=== PATIENT | male | born 1950 | race Caucasian/White ===

== ENCOUNTER 2018-03-02 12:15 | Emergency (ER) | payer OTHER, SELFPAY ==
[2018-03-02 12:23] VITALS: BP 127/92; PULSE 78; RESP 20; TEMP 36.8; O2SAT 96
--- NOTE | 2018-03-02 13:57 | DI.RAD_ITS ---
SYMPTOMS/DIAGNOSIS: TRAUMA, 5TH METATARSAL PAIN RIGHT FOOT: No fracture or dislocation is seen. There are no significant degenerative changes. IMPRESSION: Negative right foot.
--- NOTE | 2018-03-02 13:58 | W.ED.GENAD ---
Discharge Plan Disposition Patient Disposition: HOME Condition: Fair Discharge Details Chief Complaint: Orthopedic Clinical Impression: Foot sprain Primary Care Provider: ALYSHA ROYAL ED Provider: Janice Brandt Home Meds and New Rx's Prescriptions: Continue multivitamin Tablet 1 tab PO DAILY RF: 0 gabapentin 600 mg Tablet 600 mg PO TID RF: 0 simvastatin 10 mg Tablet PO HS RF: 0 allopurinol 100 mg Tablet 100 mg PO HS RF: 0 primidone 250 mg Tablet 250 mg PO TID RF: 0 losartan 25 mg Tablet 25 mg PO DAILY RF: 0 aspirin 81 mg Tablet,Chewable 81 mg PO DAILY RF: 0 magnesium 250 mg Tablet 500 mg PO DAILY RF: 0 propranolol 120 mg Capsule,Extended Release 24 Hr 120 mg PO DAILY RF: 0 cholecalciferol (vitamin D3) [Vitamin D3] 400 unit Tablet 400 unit PO DIRECTED RF: 0 Discharge Instructions Instructions: Foot Sprain (ED) Additional Instructions: Encourage rest, ice, elevation. Ibuprofen as needed for discomfort. Continue use of the postoperative shoe to help with your discomfort and help immobilize the foot. Please follow-up with primary care in 1-2 weeks if symptoms have not improved. If you develop new or worsening symptoms please seek care urgently once again. Referrals: ALYSHA ROYAL [Primary Care Provider] - Discharge Data Discharge Date/Time-TO BE ENTERED AT DEPARTURE: 03/02/18 15:23 Medical Decision Making Patient is a 67-year-old male, accompanied by his , with chief complaint of right foot pain. He reports that approximately 4 days ago, he was walking across a parking lot when he suddenly felt a crack and indicates the lateral aspect of his foot is area of discomfort. Patient reports that he has history of peripheral neuropathy and peripheral vascular disease. Is followed by his primary care. He has seen shop repairer. Denies any previous fractures to this foot. States that since the time of the injury he has been having pain along the lateral aspect of the foot, particular with ambulation. Rates the pain currently at a 7 out of 10. Exam fitted with an antalgic gait. Reports he is able to walk on his heel which does help some of the discomfort. Reports that he has no sensation in the toes. Denies any fevers or chills. No deformity is noted on exam. Patient has 3-second capillary refill. Sounds to be chronic based on patient's history. He endorses pain primarily over the proximal fifth metatarsal. Good range of motion of the ankle no pain with palpation of the ankle. No pain in the proximal fibular head or neck. X-ray reviewed by radiologist no acute bony abnormality noted. Discussed findings with the patient. Encouraged rest, ice, elevation. Advised use of anti-inflammatories to help with discomfort. Advise follow-up with primary care in the next 1-2 weeks for reevaluation if pain is not improved. Advised likely sprain of the foot, no notable ligamentous injury appreciated on exam. Advised to seek care urgently once again if he develops new or worsening symptoms. Also advised that with his chronic foot issues, including peripheral neuropathy and peripheral vascular disease, he see a shop repairer on a regular basis. Will place patient in a postoperative shoe to help with ambulation help with discomfort. We discussed new/worsening symptoms once he care urgently once again. All his questions and concerns were addressed and he is in agreement with this plan. [facility] General Mode of arrival: ambulatory. Date/Time Provider Initiated Documentation: 03/02/18 13:46. Limitations to Documentation: no limitations. Information obtained by: patient and family. History of Present Illness 67 year old M presents to the emergency department with the chief complaint of foot pain, described as moderate, with intensity rated at 7. Quality is described as aching, and is localized to the right and lower extremity. Patient reports no radiation. Patient started experiencing this day(s) (4) and it has been constant. Immobilization improves symptom(s), Movement worsens symptoms (maximal with ambulation) . Patient notes no other symptoms.; denies fever/chills and rash. Patient did receive the following treatments prior to arrival, none Related Data Home Medications Medication Instructions Recorded Confirmed allopurinol 100 mg PO HS 03/02/18 03/02/18 aspirin 81 mg PO DAILY 03/02/18 03/02/18 cholecalciferol (vitamin D3) 400 unit PO DIRECTED 03/02/18 03/02/18 [Vitamin D3] gabapentin 600 mg PO TID 03/02/18 03/02/18 losartan 25 mg PO DAILY 03/02/18 03/02/18 magnesium 500 mg PO DAILY 03/02/18 03/02/18 multivitamin 1 tab PO DAILY 03/02/18 03/02/18 primidone 250 mg PO TID 03/02/18 03/02/18 propranolol 120 mg PO DAILY 03/02/18 03/02/18 simvastatin PO HS 03/02/18 Allergies Allergy/AdvReac Type Severity Reaction Status Date / Time No Known Allergies Allergy Unverified 03/02/18 12:27 General Stated Complaint: Orthopedic MAXIMUS: 4 Review of Systems Constitutional Reports as per HPI, Denies chills and Denies fever(s) Cardiovascular Denies claudication Respiratory Denies cough Musculoskeletal Reports as per HPI, Reports abnormal gait, Reports numbness (patient has history of neuropathy affecting toes of both feet. No acute change in this with recent injury) and Denies radiating pain into limb Integumentary/Breasts Reports as per HPI, Denies rash, Denies skin swelling, Denies sores and Denies wounds Neurologic Reports as per HPI, Reports abnormal gait, Reports numbness (patient has history of neuropathy affecting toes of both feet. No acute change in this with recent injury) and Denies radicular pain [facility], [facility] Social History Smoking/Tobacco Use Status: Current every day Exam Const General: cooperative, healthy appearing, comfortable, no acute distress, well developed and well groomed Nutritional Appearance: well nourished and overweight Orientation: alert and awake Resp Effort & Inspection: normal respiratory effort, able to speak in complete sentences and no respiratory distress Cardio Rate: regular rate Rhythm: regular rhythm Skin General skin exam: no rashes or lesions noted, no ecchymosis, no erythema, no fluctuance and no induration Neuro General: alert and awake Cognition: normal cognition Speech: speech normal Gait: antalgic (walking on the heel of the right foot) Motor: muscle tone normal throughout Sensory Exam: sensory deficits noted (patient has sensory deficit of bilateral feet, maximal in toes. He reports this is chronic) Extrem General: no pedal edema, no calf tenderness and abnormal gait Right lower extremity: full ROM, normal capillary refill and foot Details: normal capillary refill, normal to inspection and tenderness Location: of the lateral foot and of the base of the 5th metatarsal; not of the medial foot and not of the mid foot; no unusual warmth; abnormal to inspection (pain over the proximal 5th metatarsal. No swell or deformity noted. Sensation diminished in toes. 2 second capillary refill. ) and no cyanosis Psych Appearance: grossly normal and well kempt Mental Status: mental status grossly normal Speech and Movement: speech and movement normal Mood: congruent mood Course Vital Signs Temperature 36.8 C 03/02/18 12:23 Pulse 78 03/02/18 12:23 Respiratory Rate 20 03/02/18 12:23 Blood Pressure 127/92 H 03/02/18 12:23 Pulse Oximetry 96 03/02/18 12:23 Temperature 36.8 C 03/02/18 12:23 Temperature Source Skin 03/02/18 12:23 Pulse 78 03/02/18 12:23 Respiratory Rate 20 03/02/18 12:23 Respiratory Effort 03/02/18 12:34 Blood Pressure 127/92 H 03/02/18 12:23 Blood Pressure Position Sitting 03/02/18 12:23 Pulse Oximetry 96 03/02/18 12:23 Oxygen Delivery Method Room Air 03/02/18 12:23 Oxygen Flow Rate 0 03/02/18 12:23 Pain Level 7 03/02/18 12:23
--- NOTE | 2018-03-02 14:06 | ED.GENADUL_ITS ---
Discharge Plan Disposition Patient Disposition: HOME Condition: Fair Discharge Details Chief Complaint: Orthopedic Clinical Impression: Foot sprain Primary Care Provider: ALYSHA ROYAL ED Provider: Janice Brandt Home Meds and New Rx's Prescriptions: Continue multivitamin Tablet 1 tab PO DAILY RF: 0 gabapentin 600 mg Tablet 600 mg PO TID RF: 0 simvastatin 10 mg Tablet PO HS RF: 0 allopurinol 100 mg Tablet 100 mg PO HS RF: 0 primidone 250 mg Tablet 250 mg PO TID RF: 0 losartan 25 mg Tablet 25 mg PO DAILY RF: 0 aspirin 81 mg Tablet,Chewable 81 mg PO DAILY RF: 0 magnesium 250 mg Tablet 500 mg PO DAILY RF: 0 propranolol 120 mg Capsule,Extended Release 24 Hr 120 mg PO DAILY RF: 0 cholecalciferol (vitamin D3) [Vitamin D3] 400 unit Tablet 400 unit PO DIRECTED RF: 0 Discharge Instructions Instructions: Foot Sprain (ED) Additional Instructions: Encourage rest, ice, elevation. Ibuprofen as needed for discomfort. Continue use of the postoperative shoe to help with your discomfort and help immobilize the foot. Please follow-up with primary care in 1-2 weeks if symptoms have not improved. If you develop new or worsening symptoms please seek care urgently once again. Referrals: ALYSHA ROYAL [Primary Care Provider] - Discharge Data Discharge Date/Time-TO BE ENTERED AT DEPARTURE: 03/02/18 15:23 Medical Decision Making Patient is a 67-year-old male, accompanied by his , with chief complaint of right foot pain. He reports that approximately 4 days ago, he was walking across a parking lot when he suddenly felt a crack and indicates the lateral aspect of his foot is area of discomfort. Patient reports that he has history of peripheral neuropathy and peripheral vascular disease. Is followed by his primary care. He has seen education adviser. Denies any previous fractures to this foot. States that since the time of the injury he has been having pain along the lateral aspect of the foot, particular with ambulation. Rates the pain currently at a 7 out of 10. Exam fitted with an antalgic gait. Reports he is able to walk on his heel which does help some of the discomfort. Reports that he has no sensation in the toes. Denies any fevers or chills. No deformity is noted on exam. Patient has 3-second capillary refill. Sounds to be chronic based on patient's history. He endorses pain primarily over the proximal fifth metatarsal. Good range of motion of the ankle no pain with palpation of the ankle. No pain in the proximal fibular head or neck. X-ray reviewed by radiologist no acute bony abnormality noted. Discussed findings with the patient. Encouraged rest, ice, elevation. Advised use of anti-inflammatories to help with discomfort. Advise follow-up with primary care in the next 1-2 weeks for reevaluation if pain is not improved. Advised likely sprain of the foot, no notable ligamentous injury appreciated on exam. Advised to seek care urgently once again if he develops new or worsening symptoms. Also advised that with his chronic foot issues, including peripheral neuropathy and peripheral vascular disease, he see a education adviser on a regular basis. Will place patient in a postoperative shoe to help with ambulation help with discomfort. We discussed new/worsening symptoms once he care urgently once again. All his questions and concerns were addressed and he is in agreement with this plan. [facility] General Mode of arrival: ambulatory . Date/Time Provider Initiated Documentation: 03/02/18 13:46 . Limitations to Documentation: no limitations . Information obtained by: patient and family . History of Present Illness 67 year old M presents to the emergency department with the chief complaint of foot pain, described as moderate, with intensity rated at 7. Quality is described as aching, and is localized to the right and lower extremity. Patient reports no radiation. Patient started experiencing this day(s) (4) and it has been constant. Immobilization improves symptom(s), Movement worsens symptoms (maximal with ambulation) . Patient notes no other symptoms. ; denies fever/chills and rash. Patient did receive the following treatments prior to arrival, none Related Data Home Medications Medication Instructions Recorded Confirmed allopurinol 100 mg PO HS 03/02/18 03/02/18 aspirin 81 mg PO DAILY 03/02/18 03/02/18 cholecalciferol (vitamin D3) 400 unit PO DIRECTED 03/02/18 03/02/18 [Vitamin D3] gabapentin 600 mg PO TID 03/02/18 03/02/18 losartan 25 mg PO DAILY 03/02/18 03/02/18 magnesium 500 mg PO DAILY 03/02/18 03/02/18 multivitamin 1 tab PO DAILY 03/02/18 03/02/18 primidone 250 mg PO TID 03/02/18 03/02/18 propranolol 120 mg PO DAILY 03/02/18 03/02/18 simvastatin PO HS 03/02/18 Allergies Allergy/AdvReac Type Severity Reaction Status Date / Time No Known Allergies Allergy Unverified 03/02/18 12:27 General Stated Complaint: Orthopedic MAXIMUS: 4 Review of Systems Constitutional Reports as per HPI, Denies chills and Denies fever(s) Cardiovascular Denies claudication Respiratory Denies cough Musculoskeletal Reports as per HPI, Reports abnormal gait, Reports numbness (patient has history of neuropathy affecting toes of both feet. No acute change in this with recent injury) and Denies radiating pain into limb Integumentary/Breasts Reports as per HPI, Denies rash, Denies skin swelling, Denies sores and Denies wounds Neurologic Reports as per HPI, Reports abnormal gait, Reports numbness (patient has history of neuropathy affecting toes of both feet. No acute change in this with recent injury) and Denies radicular pain [facility] Social History Smoking/Tobacco Use Status: Current every day Exam Const General: cooperative, healthy appearing, comfortable, no acute distress, well developed and well groomed Nutritional Appearance: well nourished and overweight Orientation: alert and awake Resp Effort & Inspection: normal respiratory effort, able to speak in complete sentences and no respiratory distress Cardio Rate: regular rate Rhythm: regular rhythm Skin General skin exam: no rashes or lesions noted, no ecchymosis, no erythema, no fluctuance and no induration Neuro General: alert and awake Cognition: normal cognition Speech: speech normal Gait: antalgic (walking on the heel of the right foot) Motor: muscle tone normal throughout Sensory Exam: sensory deficits noted (patient has sensory deficit of bilateral feet, maximal in toes. He reports this is chronic) Extrem General: no pedal edema, no calf tenderness and abnormal gait Right lower extremity: full ROM, normal capillary refill and foot Details: normal capillary refill, normal to inspection and tenderness Location: of the lateral foot and of the base of the 5th metatarsal; not of the medial foot and not of the mid foot; no unusual warmth; abnormal to inspection (pain over the proximal 5th metatarsal. No swell or deformity noted. Sensation diminished in toes. 2 second capillary refill. ) and no cyanosis Psych Appearance: grossly normal and well kempt Mental Status: mental status grossly normal Speech and Movement: speech and movement normal Mood: congruent mood Course Vital Signs Temperature 36.8 C 03/02/18 12:23 Pulse 78 03/02/18 12:23 Respiratory Rate 20 03/02/18 12:23 Blood Pressure 127/92 H 03/02/18 12:23 Pulse Oximetry 96 03/02/18 12:23 Temperature 36.8 C 03/02/18 12:23 Temperature Source Skin 03/02/18 12:23 Pulse 78 03/02/18 12:23 Respiratory Rate 20 03/02/18 12:23 Respiratory Effort 03/02/18 12:34 Blood Pressure 127/92 H 03/02/18 12:23 Blood Pressure Position Sitting 03/02/18 12:23 Pulse Oximetry 96 03/02/18 12:23 Oxygen Delivery Method Room Air 03/02/18 12:23 Oxygen Flow Rate 0 03/02/18 12:23 Pain Level 7 03/02/18 12:23
== END 2018-03-02 15:23 | disposition home or self-care (01) ==
PROVIDERS: Emergency Provider Physician Assistant
DX: S93.601A Unspecified sprain of right foot, initial encounter (principal); X50.9XXA Other and unspecified overexertion or strenuous movements or postures, initial encounter; N18.2 Chronic kidney disease, stage 2 (mild)
CPT/HCPCS: 99283; 73630